=== PATIENT | male | born 1975 | race Asian ===

== ENCOUNTER 2017-07-20 18:35 | Emergency (ER) | payer OTHER ==
[~2017-07-20] VITALS: Ht 167.6 cm; Wt 79.4 kg
== END 2017-07-20 19:36 | disposition home or self-care (01) ==
LOC: ED 18:35
DX: R10.31 Right lower quadrant pain (principal); K66.0 Peritoneal adhesions (postprocedural) (postinfection)
CPT/HCPCS: 99281

== ENCOUNTER 2019-06-19 22:40 | Emergency (ER) | payer OTHER ==
[~2019-06-19] VITALS: Ht 165.1 cm; Wt 74.8 kg
[2019-06-20 00:45] LABS: PLATELET COUNT 314 K/uL (142-355)
[2019-06-20 00:57] LABS: POTASSIUM 3.5 mmol/L (3.6-5.2)
[2019-06-20 01:04] LABS: PARTIAL THROMBOPLASTIN TIME 24.3 SECONDS (24.5-33.6)
[2019-06-20 01:55] VITALS: BP 122/72; TEMP 97.9
== END 2019-06-20 01:55 | disposition home or self-care (01) ==
LOC: ED 22:40
PROVIDERS: Hospitalist
DX: K40.90 Unilateral inguinal hernia, without obstruction or gangrene, not specified as recurrent (principal)
CPT/HCPCS: 80053; 81000; 82150; 83690; 85027; 85610; 85730; 96360; 96375; 99284; J1885; J2405

== ENCOUNTER 2019-09-17 19:31 | Emergency (ER) | payer OTHER ==
[~2019-09-17] VITALS: Ht 165.1 cm; Wt 70.3 kg
[2019-09-17 20:35] LABS: PLATELET COUNT 320 K/uL (142-355)
[2019-09-17 20:40] LABS: POTASSIUM 3.8 mmol/L (3.6-5.2)
[2019-09-17 23:06] VITALS: BP 121/78; TEMP 97.9
[2019-09-17] MEDS ORDERED: HORMONE PILL PO (23:09)
[2019-09-17] MEDS ORDERED: METF500T PO (23:09)
== END 2019-09-17 23:06 | disposition home or self-care (01) ==
LOC: ED 19:31
PROVIDERS: Emergency Medicine
DX: K40.90 Unilateral inguinal hernia, without obstruction or gangrene, not specified as recurrent (principal); E86.0 Dehydration
CPT/HCPCS: 36415; 80053; 81000; 85027; 96360; 96375; 99284; J1885

== ENCOUNTER 2020-11-27 20:45 | Emergency (ER) | payer OTHER ==
[~2020-11-27] VITALS: Ht 167.6 cm; Wt 70.3 kg
[~2020-11-27 20:45] MED LIST: HORMONE PILL PO; METF500T PO
[2020-11-27 22:00] VITALS: BP 127/82; TEMP 97.8
== END 2020-11-27 22:00 | disposition home or self-care (01) ==
LOC: ED 20:49
DX: R07.89 Other chest pain (principal)
CPT/HCPCS: 36415; 84484; 93005; 99283